=== PATIENT | female | born 1970 | race Caucasian/White ===

== ENCOUNTER 2017-08-11 18:51 | Observation (INO) ==
[2017-08-11] MEDS ORDERED: Aspirin 81 MG TAB.CHEW PO ONE (19:08)
[2017-08-11] MEDS ORDERED: Nitroglycerin 0.4 MG TAB.SUBL SL ONE (19:08)
--- NOTE | 2017-08-11 19:18 | Emergency Department Note ---
Disposition Clinical Impression: Chest pain Qualifiers: Chest pain type: unspecified Qualified Code(s): R07.9 - Chest pain, unspecified Disposition: Admitted As Inpatient Condition: Good Referrals: James Antunez MD [Primary Care Provider] - Forms: ED Satisfaction Letter Time of Disposition: 20:16 General Adult HPI - General Chief complaint: ED Chest Pain Stated complaint: chest pain/SKYLAR Time Seen by Provider: 08/11/17 19:08 Source: patient, EMS Mode of arrival: EMS Limitations: no limitations Nursing Notes Reviewed: Yes Vital Signs Reviewed: Yes - History of Present Illness HPI Narrative: 46-year-old female with significant past medical history of thyroid disorder and tobacco abuse presenting to the emergency Department chief complaint chest pain. Patient states just prior to arrival she was doing dishes and she had an argument with her children and and started having substernal chest pain. She states the pain radiated down her left arm and made her nauseous with diaphoresis. Denies vomiting. States this has happened once previously approximately one month ago. She is unsure what she was doing at that time the symptoms spontaneously resolved. Patient has no significant cardiac history. Has never had a cardiac workup. Patient does state she still has some minimal substernal chest pain at this time. Denies any other complaints. Denies dizziness, headache or shortness of breath. Pain Scale: 5 - Related Data Previous Rx's Medication Instructions Recorded Levothyroxine [Synthroid] 125 mcg PO DAILY #30 tablet 07/18/16 Phenazopyridine HCl [Pyridium] 200 mg PO TID PRN #21 tablet 08/21/16 cephALEXin [Keflex] 1 g PO BID #40 capsule 08/21/16 Benzonatate [Tessalon] 200 mg PO TID PRN #30 capsule 08/31/16 GuaiFENesin ER [Mucinex] 1,200 mg PO BID #20 tbbp.12hr 08/31/16 Sulfamethoxazole/Trimeth DS 1 each PO BID #14 tablet 08/31/16 [Bactrim DS] Allergies Allergy/AdvReac Type Severity Reaction Status Date / Time Amoxicillin Allergy Itching Verified 09/21/15 16:10 clarithromycin [From Biaxin] Allergy Itching Verified 07/18/16 13:26 Penicillins [PCN] Allergy Itching Verified 07/18/16 13:26 All systems ED: reviewed and negative except as stated. Cardiovascular: Reports: chest pain Past Medical History - Past Medical History Attestation: Yes The following information was validated with the patient. Medical history: Reports: GERD, kidney stones, thyroid disease, other Surgical history: Reports: thyroidectomy (07/18/2016: Thyroid parenchyma with multinodular hyperplasia and degenerative changes.) Psychiatric history: Reports: no psych history - Social History Smoking Status: Current every day smoker Smokeless Tobacco Status: No Alcohol use: Reports: none Drug use: Reports: none Physical Exam - General Limitations: no limitations General appearance: alert, in no apparent distress - Head Head exam: atraumatic, normocephalic, normal inspection - Eye Eye exam: Present: normal appearance. Absent: scleral icterus, conjunctival injection - ENT ENT exam: normal exam, mucous membranes moist - Neck Neck exam: Present: normal inspection, full ROM. Absent: tenderness, meningismus - Chest Chest inspection: Present: normal inspection, symmetric chest wall rise. Absent : tenderness, rash - Respiratory Respiratory exam: Present: normal lung sounds bilaterally. Absent: respiratory distress, wheezes - Cardiovascular Cardiovascular exam: Present: regular rate, normal rhythm, normal heart sounds - Abdominal Exam Abdominal exam: Present: soft, Non-Tender. Absent: distention, guarding, rebound - Extremities Exam Extremities exam: Present: normal inspection, full ROM - Neurological Exam Neurological exam: Present: alert, oriented X3 - Psychiatric Psychiatric exam: Present: normal affect, normal mood - Skin Skin exam: Present: warm, intact Course Course Narrative: 46-year-old female presenting to the emergency department for chest pain. Patient has no significant cardiac history. She is alert and oriented 3 in the room with stable vital signs. Still has minimal chest pain at this time. We will provide her with aspirin and nitroglycerin trial along with basic laboratory analysis including EKG, troponin and chest x-ray. Patient's disposition pending results. She agrees with this plan. - Reevaluation(s) Reevaluation #1: All patient's laboratory analysis within normal limits. X-ray within normal limits. Nitroglycerin did not relieve patient's pain. I spoke with the patient about repeat troponin versus admission and patient states she does not feel comfortable going home at this time. We will plan to admit the patient at this time for chest pain workup. She is alert and oriented 3. Stable vital signs. She agrees with this plan. Vital Signs Temperature 98.5 F 08/11/17 18:53 Pulse Rate 90 08/11/17 18:53 Respiratory Rate 18 08/11/17 18:53 Blood Pressure 111/57 08/11/17 18:53 O2 Sat by Pulse Oximetry 98 08/11/17 18:53 Temperature 98.5 F 08/11/17 18:53 Pulse Rate 100 08/11/17 19:29 Respiratory Rate 18 08/11/17 19:29 Blood Pressure 94/66 08/11/17 19:29 O2 Sat by Pulse Oximetry 97 08/11/17 19:29 Oxygen Delivery Oxygen Delivery Room Air Medical Decision Making - Lab Data Result diagrams: 08/11/17 19:18 08/11/17 19:18 Lab Results 08/11/17 08/11/17 Range/Units 19:18 19:18 WBC 8.1 (4.3-11.1) K/mcL RBC 3.76 L (3.82-4.97) M/mcL Hgb 10.2 L (11.5-15.4) g/dL Hct 31.8 L (35.3-44.9) % MCV 84.6 (83.0-100.0) fL MCH 27.1 L (28.0-33.3) pg MCHC 32.1 (31.6-35.5) g/dL RDW 17.2 H (11.5-14.5) % Plt Count 453 H (140-400) K/mcL MPV 9.3 L (9.4-12.4) fL Immature Gran % 0.4 (0-4) % Seg Neutrophils % 57.6 % Lymphocytes % 33.9 % Monocytes % 4.9 % Eosinophils % 1.7 % Basophils % 1.5 % Neutrophils # 4.7 (1.6-8.9) K/mcL Lymphocytes # 2.7 (0.6-4.6) K/mcL Monocytes # 0.4 (0.0-1.3) K/mcL Eosinophils # 0.1 (0.0-0.6) K/mcL Basophils # 0.1 (0.0-0.2) K/mcL Sodium 139 (136-145) mEq/L Potassium 3.5 (3.5-5.1) mEq/L Chloride 112 H (98-107) mEq/L Carbon Dioxide 21 L (23-29) mEq/L BUN 12 (6-20) mg/dL Creatinine 0.59 L (0.60-1.20) mg/dL Est GFR ( Amer) > 60 (> 60) Est GFR (Non-Af Amer) > 60 (> 60) BUN/Creatinine Ratio 20 (6-26) Glucose 113 H (70-105) mg/dL Calculated Osmolality 289 (280-300) Calcium 9.0 (8.6-10.3) mg/dL Troponin I < 0.03 (< 0.04) ng/mL - EKG Data EKG #1 EKG attestation: Yes I reviewed and interpreted this EKG. EKG results narrative: Sinus rhythm. 94 beats minute. IL interval 147, QRS 97, QTC 378. No signs of acute ST segment elevation or ischemia. Compared to previous EKG completed on 09/21/2015 no significant changes noted
[2017-08-11 19:38] LABS: Basophils # 0.1 K/mcL (0.0-0.2); Basophils % 1.5 %; Eosinophils # 0.1 K/mcL (0.0-0.6); Eosinophils % 1.7 %; Hematocrit 31.8 % (35.3-44.9); Hemoglobin 10.2 g/dL (11.5-15.4); Immature Granulocytes % 0.4 % (0-4); Lymphocytes # 2.7 K/mcL (0.6-4.6); Lymphocytes % 33.9 %; Mean Corpuscular HGB Conc 32.1 g/dL (31.6-35.5); Mean Corpuscular Hemoglobin 27.1 pg (28.0-33.3); Mean Corpuscular Volume 84.6 fL (83.0-100.0); Mean Platelet Volume 9.3 fL (9.4-12.4); Monocytes # 0.4 K/mcL (0.0-1.3); Monocytes % 4.9 %; Neutrophils # 4.7 K/mcL (1.6-8.9); Platelet Count 453 K/mcL (140-400); Red Blood Count 3.76 M/mcL (3.82-4.97); Red Cell Distribution Width 17.2 % (11.5-14.5); Segmented Neutrophils % 57.6 %
[2017-08-11 19:53] LABS: BUN/Creatinine Ratio 20 (6-26); Blood Urea Nitrogen 12 mg/dL (6-20); Carbon Dioxide 21 mEq/L (23-29); Chloride 112 mEq/L (98-107); Glucose 113 mg/dL (70-105); Osmolality,Calculated 289 (280-300); Potassium 3.5 mEq/L (3.5-5.1); Sodium 139 mEq/L (136-145); eGFR For African Americans > 60 (> 60); eGFR For Non-African Americans > 60 (> 60)
[2017-08-11 19:54] LABS: Troponin I < 0.03 ng/mL (< 0.04)
--- NOTE | 2017-08-11 20:15 | Emergency Department Note ---
Disposition Clinical Impression: Chest pain Qualifiers: Chest pain type: unspecified Qualified Code(s): R07.9 - Chest pain, unspecified Disposition: Admitted As Inpatient Condition: Good General Adult HPI - General Chief complaint: ED Chest Pain Stated complaint: chest pain/SKYLAR Time Seen by Provider: 08/11/17 19:08 Source: patient, EMS Mode of arrival: EMS Limitations: no limitations Nursing Notes Reviewed: Yes Vital Signs Reviewed: Yes - History of Present Illness Pain Scale: 5 - Related Data Previous Rx's Medication Instructions Recorded Levothyroxine [Synthroid] 125 mcg PO DAILY #30 tablet 07/18/16 Phenazopyridine HCl [Pyridium] 200 mg PO TID PRN #21 tablet 08/21/16 cephALEXin [Keflex] 1 g PO BID #40 capsule 08/21/16 Benzonatate [Tessalon] 200 mg PO TID PRN #30 capsule 08/31/16 GuaiFENesin ER [Mucinex] 1,200 mg PO BID #20 tbbp.12hr 08/31/16 Sulfamethoxazole/Trimeth DS 1 each PO BID #14 tablet 08/31/16 [Bactrim DS] Allergies Allergy/AdvReac Type Severity Reaction Status Date / Time Amoxicillin Allergy Itching Verified 09/21/15 16:10 clarithromycin [From Biaxin] Allergy Itching Verified 07/18/16 13:26 Penicillins [PCN] Allergy Itching Verified 07/18/16 13:26 Cardiovascular: Reports: chest pain Past Medical History - Past Medical History Medical history: Reports: GERD, kidney stones, thyroid disease, other Surgical history: Reports: thyroidectomy (07/18/2016: Thyroid parenchyma with multinodular hyperplasia and degenerative changes.) Psychiatric history: Reports: no psych history - Social History Smoking Status: Current every day smoker Smokeless Tobacco Status: No Alcohol use: Reports: none Drug use: Reports: none Physical Exam - General Limitations: no limitations General appearance: alert, in no apparent distress Course Vital Signs Temperature 98.5 F 08/11/17 18:53 Pulse Rate 90 08/11/17 18:53 Respiratory Rate 18 08/11/17 18:53 Blood Pressure 111/57 08/11/17 18:53 O2 Sat by Pulse Oximetry 98 08/11/17 18:53 Temperature 98.5 F 08/11/17 18:53 Pulse Rate 100 08/11/17 19:29 Respiratory Rate 18 08/11/17 19:29 Blood Pressure 94/66 08/11/17 19:29 O2 Sat by Pulse Oximetry 97 08/11/17 19:29 Oxygen Delivery Oxygen Delivery Room Air Medical Decision Making - Lab Data Result diagrams: 08/11/17 19:18 08/11/17 19:18 Lab Results 08/11/17 08/11/17 Range/Units 19:18 19:18 WBC 8.1 (4.3-11.1) K/mcL RBC 3.76 L (3.82-4.97) M/mcL Hgb 10.2 L (11.5-15.4) g/dL Hct 31.8 L (35.3-44.9) % MCV 84.6 (83.0-100.0) fL MCH 27.1 L (28.0-33.3) pg MCHC 32.1 (31.6-35.5) g/dL RDW 17.2 H (11.5-14.5) % Plt Count 453 H (140-400) K/mcL MPV 9.3 L (9.4-12.4) fL Immature Gran % 0.4 (0-4) % Seg Neutrophils % 57.6 % Lymphocytes % 33.9 % Monocytes % 4.9 % Eosinophils % 1.7 % Basophils % 1.5 % Neutrophils # 4.7 (1.6-8.9) K/mcL Lymphocytes # 2.7 (0.6-4.6) K/mcL Monocytes # 0.4 (0.0-1.3) K/mcL Eosinophils # 0.1 (0.0-0.6) K/mcL Basophils # 0.1 (0.0-0.2) K/mcL Sodium 139 (136-145) mEq/L Potassium 3.5 (3.5-5.1) mEq/L Chloride 112 H (98-107) mEq/L Carbon Dioxide 21 L (23-29) mEq/L BUN 12 (6-20) mg/dL Creatinine 0.59 L (0.60-1.20) mg/dL Est GFR ( Amer) > 60 (> 60) Est GFR (Non-Af Amer) > 60 (> 60) BUN/Creatinine Ratio 20 (6-26) Glucose 113 H (70-105) mg/dL Calculated Osmolality 289 (280-300) Calcium 9.0 (8.6-10.3) mg/dL Troponin I < 0.03 (< 0.04) ng/mL Attestation Statement - Attestation Attestation: I, Christ Christianson MD, personally evaluated this patient and discussed their management with the resident physician. I reviewed the resident's note and agree with the documented findings, medical decision making, and plan of care. 46-year-old female presents to the emergency department by ambulance with a complaint of substernal chest pain which started about 30 minutes prior to arrival while she was standing washing dishes. She describes the pain as a dull aching pressure in the substernal region which radiated to the left arm. She felt short of breath with the pain and states it was hard to get a good breath. She also had some diaphoresis. She denies nausea. No palpitations. She did feel weak and dizzy but no syncope. She has no prior cardiac history. Patient states the pain has improved but is still present and now she describes it as a burning sensation in the substernal region. She received aspirin and nitroglycerin. No change in the pain with nitroglycerin 1. She did not receive further nitroglycerin because it did not change her pain and it did not drop her blood pressure to the upper 90s systolic. On examination patient is a well-developed thin female in no acute distress. She is alert and oriented 3. There is no cyanosis or diaphoresis. Breath sounds are clear and equal bilaterally. Heart regular rate and rhythm. Abdomen soft and nontender with normal bowel sounds. No gross focal neurological deficits. No pedal edema. Labs reviewed and unremarkable. Troponin normal. Chest x-ray negative. EKG shows a normal sinus rhythm with a ventricular rate of 94. No acute ST segment elevation or depression. No ectopy or arrhythmia. The hospitalist, Dr. Bui, was consulted and accepted admission of the patient.
--- NOTE | 2017-08-11 20:49 | Internal Med History&Physical ---
Date of Encounter: 08/11/17 Time of Encounter: 20:00 Assessment and Plan (1) Chest pain Current visit: Yes Status: Acute Patient's first set of cardiac biomarkers are negative. Will monitor on telemetry and trend serial troponins Will order nuclear medicine stress test for the morning Qualifiers: Chest pain type: unspecified Qualified Code(s): R07.9 - Chest pain, unspecified (2) Hyperthyroidism Current visit: No Status: Acute Continue levothyroxine (3) GERD (gastroesophageal reflux disease) Current visit: Yes Status: Acute Continue PPI Qualifiers: Esophagitis presence: without esophagitis Qualified Code(s): K21.9 - Gastro -esophageal reflux disease without esophagitis (4) DVT prophylaxis Current visit: Yes Status: Acute SCDs Internal Medicine - H&P: HPI Chief complaint: Chest pain Admitted From: Home Plans for Post Hospital Care: Home History of present illness: Patient is a 46-year-old female with past medical history significant for hypothyroid, anxiety and a 30 pack year smoker who presents to the ER on 08/11/17 due to chest pain. Patient reports the onset of chest pain occurred approximately 3 hours prior to admission while washing dishes. Patient states that the chest pain was substernal and constant and described as a dull ache to a burning sensation. Patient denies any radiation or any provoking/relieving factors. Patient reports of associated symptoms of diaphoresis and nausea in addition to shortness of breath. She does report of having similar symptoms approximately one month ago but resolved. She decided to come to the ER for evaluation. In the ER, patients first set of cardiac biomarkers were negative and no acute findings on chest x-ray. Patient will be admitted to the medical surgical floor for ACS rule out. Past Med Surg Social Fam HX - Past Medical History Medical history: GERD, kidney stones, thyroid disease, other Psychiatric history: no psych history - Past Surgical History Surgical History: thyroidectomy (07/18/2016: Thyroid parenchyma with multinodular hyperplasia and degenerative changes.) - Social History Smoking Status: Current every day smoker Smokeless Tobacco Status: No Alcohol use: none Drug use: none - Family History Mother Living Status: Still Living Hx Family Endocrine Disorder: Yes (DM) Internal Medicine - H&P: Meds Levothyroxine [Synthroid] 125 mcg PO DAILY #30 tablet 07/18/16 [Rx] Phenazopyridine HCl [Pyridium] 200 mg PO TID PRN #21 tablet 08/21/16 [Rx] cephALEXin [Keflex] 1 g PO BID #40 capsule 08/21/16 [Rx] Benzonatate [Tessalon] 200 mg PO TID PRN #30 capsule 08/31/16 [Rx] GuaiFENesin ER [Mucinex] 1,200 mg PO BID #20 tbbp.12hr 08/31/16 [Rx] Sulfamethoxazole/Trimeth DS [Bactrim DS] 1 each PO BID #14 tablet 08/31/16 [Rx] 3 Allergy/AdvReac Type Severity Reaction Status Date / Time Amoxicillin Allergy Itching Verified 09/21/15 16:10 clarithromycin [From Biaxin] Allergy Itching Verified 07/18/16 13:26 Penicillins [PCN] Allergy Itching Verified 07/18/16 13:26 All Systems PM: A 10-system review of systems was performed and is negative for pertinent findings except as documented above in the HPI. - Constitutional Vitals: Temp Pulse Resp BP Pulse Ox 98.5 F 100 18 94/66 97 08/11/17 18:53 08/11/17 19:29 08/11/17 19:29 08/11/17 19:29 08/11/17 19:29 General appearance: Present: A&O X 3, no acute distress - Eye Eye exam: Present: normal appearance - Respiratory Respiratory exam: Present: CTAB. Absent: accessory muscle use, rales, rhonchi, wheezes - Cardiovascular Cardiovascular exam: Present: RRR, +S1, +S2. Absent: diastolic murmur, gallop, rubs, systolic murmur - GI/Abdominal GI/Abdominal exam: Present: normal bowel sounds, soft, no peritoneal signs. Absent: distended, tenderness - Extremities Exam Extremities exam: Absent: pedal edema - Neurological Exam Neurological exam: Present: oriented X3 - Psychiatric Psychiatric exam: Present: normal mood - Skin Skin exam: Present: normal color Internal Med - H&P Results - Labs CBC & Chem 7: 08/11/17 19:18 08/11/17 19:18 Labs: Short CBC 08/11/17 Range/Units 19:18 WBC 8.1 (4.3-11.1) K/mcL Hgb 10.2 L (11.5-15.4) g/dL Hct 31.8 L (35.3-44.9) % Plt Count 453 H (140-400) K/mcL Neutrophils # 4.7 (1.6-8.9) K/mcL BMP 08/11/17 19:18 Sodium 139 Potassium 3.5 Chloride 112 H Carbon Dioxide 21 L BUN 12 Creatinine 0.59 L Glucose 113 H Calcium 9.0 Cardiac Enzymes 08/11/17 Range/Units 19:18 Troponin I < 0.03 (< 0.04) ng/mL - Impressions ITS Impressions Chest X-Ray 08/11/17 19:08 IMPRESSION: No acute cardiopulmonary disease. D/ / Edson Miller MD / Edson Miller MD Interpreting Provider: Edson Miller MD
[2017-08-11] MEDS ORDERED: Naloxone 0.4 MG/ML INJ IVP PRN (21:03)
[2017-08-12 03:32] LABS: Basophils # 0.1 K/mcL (0.0-0.2); Basophils % 0.9 %; Eosinophils # 0.2 K/mcL (0.0-0.6); Hematocrit 30.4 % (35.3-44.9); Hemoglobin 9.5 g/dL (11.5-15.4); Immature Granulocytes % 0.1 % (0-4); Lymphocytes # 3.7 K/mcL (0.6-4.6); Lymphocytes % 49.7 %; Mean Corpuscular HGB Conc 31.3 g/dL (31.6-35.5); Mean Corpuscular Hemoglobin 26.3 pg (28.0-33.3); Mean Corpuscular Volume 84.2 fL (83.0-100.0); Mean Platelet Volume 9.4 fL (9.4-12.4); Monocytes # 0.6 K/mcL (0.0-1.3); Monocytes % 7.6 %; Neutrophils # 2.9 K/mcL (1.6-8.9); Platelet Count 389 K/mcL (140-400); Red Blood Count 3.61 M/mcL (3.82-4.97); Red Cell Distribution Width 17.3 % (11.5-14.5); Segmented Neutrophils % 39.7 %
[2017-08-12 03:51] LABS: Troponin I < 0.03 ng/mL (< 0.04)
[2017-08-12] MEDS ORDERED: Regadenoson 0.4 MG/5 ML SYRINGE IVP ONE (06:21)
[2017-08-12 09:45] LABS: BUN/Creatinine Ratio 27 (6-26); Blood Urea Nitrogen 12 mg/dL (6-20); Carbon Dioxide 22 mEq/L (23-29); Chloride 110 mEq/L (98-107); Glucose 88 mg/dL (70-105); Osmolality,Calculated 283 (280-300); Potassium 3.4 mEq/L (3.5-5.1); Sodium 137 mEq/L (136-145); eGFR For African Americans > 60 (> 60); eGFR For Non-African Americans > 60 (> 60)
[2017-08-12 11:21] VITALS: BP 93/56
--- NOTE | 2017-08-12 13:32 | Discharge Summary ---
Orders not resulted at time of discharge: Pending orders 08/11/17 21:05 NM daria perf SPECT multi [NM] Routine Date of Encounter: 08/12/17 Time of Encounter: 13:30 - Discharge Diagnosis (1) Chest pain Priority: Primary Status: Acute Comments: 1 troponins were negative [address]-T wave abnormalities. Presently chest pain-free. Nuclear stress test was negative for ischemia or infarct. Patient follow-up with PCP as outpatient Qualifiers: Chest pain type: unspecified Qualified Code(s): R07.9 - Chest pain, unspecified (2) GERD (gastroesophageal reflux disease) Priority: Secondary Status: Acute Comments: Cont PPI Qualifiers: Esophagitis presence: without esophagitis Qualified Code(s): K21.9 - Gastro -esophageal reflux disease without esophagitis (3) Hyperthyroidism Priority: Secondary Status: Acute Comments: cont with Synthroid Hospital course: Ms. Silver is a 46 year old female past medical history of hyperthyroid anxiety current smoker presented to the [facility] ER with complaints of chest pain. She received nitroglycerin without any response Cardiac enzymes were negative 3 no acute findings on chest x-ray EKG with no ST -T wave abnormalities. She did undergo a nuclear cardiac stress test which was negative for ischemia or infarct. Presently she is chest pain-free. I encouraged patient to stop smoking, and to follow-up with PCP. Patient did verbalize understanding. She is hemodynamically stable at this time and is ready for discharge - Time Spent with Patient Total time spent providing and/or coordinating discharge services: - Discharge Medications Home Medications: Eszopiclone [Lunesta] 3 mg PO HS 08/11/17 [History] Levothyroxine Sodium [Levoxyl] 75 mcg PO DAILY 08/11/17 [History] Omeprazole [PriLOSEC] 20 mg PO DAILY 08/11/17 [History] Oxybutynin Chloride [Ditropan Xl] 5 mg PO DAILY 08/11/17 [History] Allergies/Adverse Reactions: 3 Allergy/AdvReac Type Severity Reaction Status Date / Time Amoxicillin Allergy Itching Verified 09/21/15 16:10 clarithromycin [From Biaxin] Allergy Itching Verified 07/18/16 13:26 Penicillins [PCN] Allergy Itching Verified 07/18/16 13:26 Date of admission: 08/11/17 20:17 Primary care physician: James Antunez Discharging clinician: Sena Rojas Anticipated date of discharge: 08/12/17 - Constitutional Vitals: Temp Pulse Resp BP Pulse Ox 98.6 F 79 17 93/56 97 08/12/17 11:20 08/12/17 11:20 08/12/17 11:20 08/12/17 11:20 08/12/17 11:20 General appearance: Present: A&O X 3, no acute distress - Head Head exam: Present: atraumatic, normocephalic - Eye Eye exam: Present: PERRL, conjuntiva pink, sclera anicteric Pupils: Present: PERRL - Neck Neck exam general surgery: Present: supple, trachea midline. Absent: lymphadenopathy - Respiratory Respiratory exam: Present: CTAB. Absent: accessory muscle use, rales, rhonchi, wheezes - Cardiovascular Cardiovascular exam: Present: RRR, +S1, +S2. Absent: diastolic murmur, gallop, rubs, systolic murmur - GI/Abdominal GI/Abdominal exam: Present: normal bowel sounds, soft, no peritoneal signs. Absent: distended, tenderness - Extremities Exam Extremities exam: Present: warm, radial pulses palpable and symmetrical. Absent : calf tenderness, cyanotic, pedal edema - Neurological Exam Neurological exam: Present: CN II-XII intact, oriented X3, no focal deficits. Absent: pronater drift, facial droop, speech deficit - Skin Skin exam: Present: dry, intact - Patient Status Disposition: Home, Self-Care Condition: Good - Discharge Instructions Instructions: Chest Pain (DC) Follow Up With: James Antunez MD [Primary Care Provider] - - Diet and Activity Activity: resume usual activities as tolerated Diet: advance to your usual diet
[2017-08-12] MEDS ORDERED: Acetaminophen 325 MG TABLET PO ONE (14:13)
--- NOTE | 2017-08-12 14:47 | Electrocardiograph Report ---
[address] [address] Test Date: 2017-08-11 Pat Name: Aditi La Russell Department: 103 Room: 3B Gender: F Analytical Engineer: PABLO : 1970 Requested By: Lakshmi Gonsales Order Number: [id number] Reading MD: Marcus Goff Measurements Intervals [place] Rate: 94 P: 76 TN: 147 QRS: 70 QRSD: 97 T: 44 QT: 326 QTc: 378 Interpretive Statements SINUS RHYTHM Electronically Signed On 08-12-2017 14:45:47 EDT by Marcus Goff
== END 2017-08-12 15:26 | disposition home or self-care (01) ==
LOC: EMEROO 18:51 → 3ANU 18:51 → 3BNU 20:34
PROVIDERS: ADMIT Hospitalist; ATTEND Registered Nurse